=== PATIENT | male | born 1970 | race Caucasian/White ===

== ENCOUNTER 2025-06-05 16:55 | Emergency (ER) | payer OTHER ==
[~2025-06-05] VITALS: Ht 175.3 cm; Wt 94.0 kg
[~2025-06-05 16:55] MED LIST: NORCO 5-325 TA1 EACH PO; PROAIR HFA8.5 GM IH
[2025-06-05] MEDS ORDERED: ALBUTEROL/IPRATROPIUM 3 ML NEB INH PRN (17:15)
[2025-06-05 17:25] LABS: BASOPHILS 0.5 % (0.2-1.2); EOSINOPHILS 1.4 % (0.8-7.0); LYMPHOCYTES 23.0 % (21.8-53.1); MCH 30.9 PG (25.7-32.2); MCHC 34.9 g/dL (32.3-36.5); MCV 88.3 fL (79.0-92.2); MONOCYTES 7.4 % (5.3-12.2); NEUTROPHILS 67.5 % (34.0-67.9); RBC 4.70 M/uL (4.63-6.08)
[2025-06-05] MEDS ORDERED: SODIUM CHLORIDE 0.9% 1,000 ML IV PRN (17:45)
[2025-06-05 17:48] LABS: ALT (SGPT) 31 U/L (14-59); AST (SGOT) 25 U/L (15-37); GLOMERULAR FILTRATION RATE,EST 73 mL/min (>60); PROTEIN, TOTAL 7.7 g/dL (6.4-8.2); UREA NITROGEN 7 mg/dL (7-18)
[2025-06-05 18:37] VITALS: BP 127/76
[2025-06-05] MEDS ORDERED: LEVOFLOXACIN750 MG PO (19:04)
[2025-06-05] MEDS ORDERED: IPRAT-ALBUT 0.5-3 ML INH (19:04)
[2025-06-05] MEDS ORDERED: PREDNISONE20 MG PO (19:04)
[2025-06-05] MEDS ORDERED: ALBUTEROL/IPRATROPIUM 3 ML NEB INH ONE (19:30)
[2025-06-06] MEDS ORDERED: ARNUITY ELLIPT50 MCG IH (18:06)
[2025-06-06] MEDS ORDERED: POTASSIUM CHLO10 MEQ PO (19:56)
[2025-06-06] MEDS ORDERED: LASIX20 MG PO (19:56)
--- NOTE | 2025-06-06 21:45 | EKG ---
[facility] [address] [place] [address] Signed Sinus tachycardia Otherwise normal ECG No previous ECGs available Confirmed by Zina Mulligan MD () on 06/06/2025 9:44:59 PM Electronically Signed By: ZINA MULLIGAN MD 06/06/255 PATIENT NAME: GERA ULLOA NOY Electrocardiogram DATE OF : 74 PHYSICIAN: ZINA MULLIGAN MD REPORT #: [id number] REPORT IS CONFIDENTIAL AND NOT TO BE RELEASED WITHOUT AUTHORIZATION
== END 2025-06-05 19:36 | disposition home or self-care (01) ==
LOC: ED 16:55
PROVIDERS: Emergency Medicine
DX: J18.9 Pneumonia, unspecified organism (principal); J45.909 Unspecified asthma, uncomplicated; Z87.891 Personal history of nicotine dependence; Z88.1 Allergy status to other antibiotic agents
CPT/HCPCS: 36415; 71045; 80053; 83605; 83735; 84484; 85025; 87040; 93005; 93010; 94640; 96365; 99285-25; J0696; J7030

== ENCOUNTER 2025-06-06 17:19 | Emergency (ER) | payer OTHER ==
[~2025-06-06] VITALS: Ht 175.3 cm; Wt 94.0 kg
[~2025-06-06 17:19] MED LIST changes: +IPRAT-ALBUT 0.5-3 ML INH; +LEVOFLOXACIN750 MG PO; +PREDNISONE20 MG PO
--- OUTSIDE RECORDS SUMMARY | 2025-06-06 17:26 | XMS ---
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 Multi-Specialty Current FAMILY PHONE: Unknown Leia has no Care Guidelines for this patient. Saige VISIT COUNT (12 MO.) 2 [facility] TOTAL 2 NOTE: Visits indicate total known visits. ED/UCC VISIT TRACKING (12 MO.) 06/06/2025 17:19 [facility] TYPE: Emergency COMPLAINT: - SOB 06/05/2025 16:56 [facility] TYPE: Emergency COMPLAINT: - SOB INPATIENT VISIT TRACKING (12 MO.) No inpatient visits to display in this time frame [email or web address]
[2025-06-06] MEDS ORDERED: ARNUITY ELLIPT50 MCG IH (18:06)
[2025-06-06 18:22] LABS: BASOPHILS 0.4 % (0.2-1.2); EOSINOPHILS 2.8 % (0.8-7.0); LYMPHOCYTES 21.8 % (21.8-53.1); MCH 30.7 PG (25.7-32.2); MCHC 34.4 g/dL (32.3-36.5); MCV 89.3 fL (79.0-92.2); MONOCYTES 6.7 % (5.3-12.2); NEUTROPHILS 68.1 % (34.0-67.9); RBC 4.56 M/uL (4.63-6.08)
[2025-06-06 18:31] LABS: GLOMERULAR FILTRATION RATE,EST 86.0 mL/min (>60); UREA NITROGEN 6.0 mg/dL (7-18)
[2025-06-06] MEDS ORDERED: LASIX20 MG PO (19:56)
[2025-06-06] MEDS ORDERED: POTASSIUM CHLO10 MEQ PO (19:56)
[2025-06-06] MEDS ORDERED: FUROSEMIDE 40 MG/4 ML VIAL IV ONE (20:00)
[2025-06-06 20:22] VITALS: BP 118/81
== END 2025-06-06 20:23 | disposition home or self-care (01) ==
LOC: ED 17:19
PROVIDERS: Emergency Medicine
DX: J18.9 Pneumonia, unspecified organism (principal); J45.909 Unspecified asthma, uncomplicated; Z87.891 Personal history of nicotine dependence; Z88.8 Allergy status to other drugs, medicaments and biological substances; Z79.2 Long term (current) use of antibiotics
CPT/HCPCS: 36415; 71260; 80048; 85025; 99285-25; J1938; Q9967